=== PATIENT | female | born 1950 | race Caucasian/White ===

== ENCOUNTER 2021-02-12 04:14 | Inpatient (IN) ==
[2021-02-12] MEDS ORDERED: Chloraseptic Spray 177 ML BOTTLE MM PRN (10:19)
[2021-02-12] MEDS ORDERED: Naloxone 0.4 MG/ML INJ IVP PRN (10:21)
[2021-02-12] MEDS ORDERED: *HR* HYDROcodone/Acet 5/325 mg TABLET PO PRN (10:21)
[2021-02-12] MEDS ORDERED: Ondansetron 4 MG/2 ML VIAL IVP PRN (10:21)
[2021-02-12] MEDS ORDERED: Perflutren Lipid Microsphere 1.3 ML in 0.9 % Sodium Chloride 8.7 ML IVP PRN (10:24)
[2021-02-12] MEDS ORDERED: dexAMETHasone 4 MG TABLET PO SCH (10:45)
[2021-02-12 11:12] LABS: Hemoglobin 10.8 g/dL (11.5-15.4)
[2021-02-12 11:13] LABS: Hematocrit 32.9 % (35.3-44.9); Mean Corpuscular HGB Conc 32.8 g/dL (31.6-35.5); Mean Corpuscular Hemoglobin 31.2 pg (28.0-33.3); Mean Corpuscular Volume 95.1 fL (83.0-100.0); Mean Platelet Volume 10.2 fL (9.4-12.4); Platelet Count 195 K/mcL (140-400); Red Blood Count 3.46 M/mcL (3.82-4.97); Red Cell Distribution Width 19.2 % (11.5-14.5)
[2021-02-12 11:16] LABS: White Blood Count 38.3 K/mcL (4.3-11.1)
[2021-02-12 11:36] LABS: Albumin 3.3 g/dL (3.5-5.7); Albumin/Globulin Ratio 1.1 (1.1-2.2); Bilirubin,Total 0.6 mg/dL (0.3-1.0); Calcium 8.3 mg/dL (8.6-10.3); Chol/HDL Ratio 2.9 (0-4.9); Globulin 2.9 g/dL (2.4-3.5); Magnesium 1.9 mg/dL (1.6-2.6); Phosphorous 3.1 mg/dL (2.7-4.5); Potassium 3.6 mEq/L (3.5-5.1); Total Protein 6.2 g/dL (6.4-8.9)
[2021-02-12 11:48] LABS: Thyroid Stimulating Hormone 1.225 mcIU/mL (0.340-5.600)
[2021-02-12] MEDS ORDERED: *HR* Heparin 5,000 UNIT/ML VIAL IVP PRN ×4 (11:55→16:10)
[2021-02-12] MEDS ORDERED: Heparin 25,000UNIT/250ML 1/2NS 25,000 UNIT/250 ML IV.SOLN IVC SCH (12:00)
[2021-02-12] MEDS ORDERED: methylPREDNISolone 125 MG/2 ML VIAL IVP ONE (12:02)
[2021-02-12 12:06] LABS: Platelet Estimate Normal (Normal)
[2021-02-12] MEDS: Nicotine 21 MG PATCH.TD24 TD SCH (12:26)
[2021-02-12 14:04] LABS: Bilirubin,Urine Negative (Negative); Blood,Urine Small (Negative); Clarity,Urine Clear (Clear); Color,Urine Light-Yellow (Yellow); Glucose,Urine (UA) Normal (Normal); Ketones,Urine Trace mg/dL (Negative); Leukocyte Esterase,Urine Negative (Negative); Mucus,Urine Few per lpf (None-Few); Nitrite,Urine Negative (Negative); PH,Urine 5.5 pH Units (5.0-8.0); Protein,Urine 30 mg/dL (Neg-Trace); RBC,Urine 0-3 per hpf (0-3); Specific Gravity,Urine > 1.030 (1.010-1.025); Squamous Epithelial Cell,Urine Few per hpf (None-Few); Urobilinogen,Urine Normal (Normal); WBC,Urine 0-3 per hpf (0-3)
[2021-02-12] MEDS: Ipratropium/Albuterol Neb 3 ML IH SCH ×2 (14:13→15:56)
[2021-02-12 15:25] LABS: Heparin anti-factor XA UFH < 0.04 IU/mL (0.30-0.70); INR 1.3; Prothrombin Time 14.3 Seconds (9.4-12.1)
[2021-02-12 15:57] LABS: ABG Base Excess 0 mEq/L (-2 to 3); ABG HCO3 24 mEq/L (21-27); ABG Oxygen Saturation 93 % (95-98); ABG PCO2 34 mmHg (35-45); ABG PH 7.45 pH Units (7.32-7.45); ABG PO2 63 mmHg (85-104); ABG TCO2 25 mEq/L (20-26)
[2021-02-12] MEDS: Heparin 25,000UNIT/250ML 1/2NS 25,000 UNIT/250 ML IV.SOLN IVC SCH (16:41)
[2021-02-12] MEDS: MethylPREDNISolone 40 MG/ML VIAL IVP SCH ×2 (16:41→23:59)
[2021-02-12 16:49] LABS: Adenovirus Not Detected (Not Detect); Bordetella Pertussis Not Detected (Not Detect); Chlamydophila pneumoniae Not Detected (Not Detect); Coronavirus 229E Not Detected (Not Detect); Coronavirus HKU1 Not Detected (Not Detect); Coronavirus NL63 Not Detected (Not Detect); Coronavirus OC43 Not Detected (Not Detect); Human Metapneumovirus Not Detected (Not Detect); Human Rhinovirus/Enterovirus Not Detected (Not Detect); Influenza A Subtype 2009 H1 Not Detected (Not Detect); Influenza B Not Detected (Not Detect); Mycoplasma pneumoniae Not Detected (Not Detect); Parainfluenza Virus 1 Not Detected (Not Detect); Parainfluenza Virus 2 Not Detected (Not Detect); Parainfluenza Virus 3 Not Detected (Not Detect); Parainfluenza Virus 4 Not Detected (Not Detect); Respiratory Syncytial Virus Not Detected (Not Detect); SARS-CoV-2 Not Detected (Not Detect)
[2021-02-12] MEDS: Magic Mouthwash 10 ML UD Cup PO SCH (16:52)
[2021-02-12] MEDS: Calcium Gluconate 1gm/50mL 1 GM/50 ML BAG IVPB SCH ×2 (16:56→18:24)
[2021-02-12] MEDS: *HR* LORazepam 0.5 MG TABLET PO SCH ×2 (17:04→20:01)
[2021-02-12] MEDS: Piperacillin/Tazobactam 3.375 GM in 0.9 % Sodium Chloride Mini Bag 100 ML IVPB SCH ×2 (17:05→23:57)
[2021-02-12] MEDS: Folic Acid 1 MG TABLET PO SCH (17:13)
[2021-02-12] MEDS: FLUoxetine 20 MG CAPSULE PO SCH (17:13)
[2021-02-12] MEDS ORDERED: levoFLOXacin 750 MG/150 ML 750 MG/150 ML BAG IVPB SCH (18:00)
[2021-02-12] MEDS ORDERED: Furosemide 20 MG/2 ML VIAL IVP ONE (18:22)
[2021-02-12] MEDS: *HR* OxyCODONE/APAP 7.5/325 TABLET PO PRN (20:00)
[2021-02-12] MEDS: Acetaminophen 325 MG TABLET PO PRN (20:01)
[2021-02-12] MEDS: Lactobacillus 1 EACH CAP.SPRINK PO SCH (20:01)
[2021-02-12] MEDS: Chlorhexidine Rinse 15 ML MOUTHWASH MM SCH (20:01)
[2021-02-12] MEDS: Ipratropium Neb 0.5 MG NEBULIZER IH SCH (20:13)
[2021-02-12] MEDS: Budesonide/Formoterol 160/4.5 1 PUFF INH IH SCH (20:17)
[2021-02-13] MEDS: Ipratropium Neb 0.5 MG NEBULIZER IH SCH ×7 (00:22→23:36)
[2021-02-13] MEDS: Melatonin 3 MG TABLET PO PRN (02:11)
[2021-02-13] MEDS: MethylPREDNISolone 40 MG/ML VIAL IVP SCH ×4 (05:35→23:38)
[2021-02-13] MEDS: *HR* OxyCODONE/APAP 7.5/325 TABLET PO PRN ×3 (05:54→20:50)
[2021-02-13] MEDS: Budesonide/Formoterol 160/4.5 1 PUFF INH IH SCH ×3 (08:01→19:37)
[2021-02-13] MEDS ORDERED: Loratadine 10 MG TABLET PO SCH (09:00)
[2021-02-13] MEDS: Furosemide 20 MG/2 ML VIAL IVP SCH ×4 (09:00→20:57)
[2021-02-13] MEDS: Folic Acid 1 MG TABLET PO SCH (09:02)
[2021-02-13] MEDS: Multivit/Ca/Min/Fe/FA 1 TAB TABLET PO SCH (09:02)
[2021-02-13] MEDS: FLUoxetine 20 MG CAPSULE PO SCH (09:02)
[2021-02-13] MEDS: Aspirin 81 MG TAB.CHEW PO SCH (09:02)
[2021-02-13] MEDS: Lactobacillus 1 EACH CAP.SPRINK PO SCH ×2 (09:02→20:50)
[2021-02-13] MEDS: *HR* LORazepam 0.5 MG TABLET PO SCH ×3 (09:02→20:50)
[2021-02-13] MEDS: Nicotine 21 MG PATCH.TD24 TD SCH (09:02)
[2021-02-13] MEDS: Chlorhexidine Rinse 15 ML MOUTHWASH MM SCH ×2 (09:13→20:51)
[2021-02-13] MEDS: Magic Mouthwash 10 ML UD Cup PO SCH ×3 (09:13→16:36)
[2021-02-13] MEDS: Piperacillin/Tazobactam 3.375 GM in 0.9 % Sodium Chloride Mini Bag 100 ML IVPB SCH ×3 (12:10→23:40)
[2021-02-13] MEDS: Heparin 25,000UNIT/250ML 1/2NS 25,000 UNIT/250 ML IV.SOLN IVC SCH (16:27)
[2021-02-14 01:27] LABS: Hemoglobin 10.4 g/dL (11.5-15.4); Mean Corpuscular Volume 93.8 fL (83.0-100.0)
[2021-02-14 01:30] LABS: Hematocrit 31.9 % (35.3-44.9); Immature Platelets 4.7 % (1.1-6.1); Mean Corpuscular HGB Conc 32.6 g/dL (31.6-35.5); Mean Corpuscular Hemoglobin 30.6 pg (28.0-33.3); Mean Platelet Volume 11.1 fL (9.4-12.4); Red Cell Distribution Width 18.6 % (11.5-14.5); White Blood Count 16.2 K/mcL (4.3-11.1)
[2021-02-14 01:52] LABS: BUN/Creatinine Ratio 47 (6-26); Blood Urea Nitrogen 32 mg/dL (8-23); Carbon Dioxide 24 mEq/L (23-29); Chloride 103 mEq/L (98-107); Glucose 111 mg/dL (70-105); Magnesium 1.7 mg/dL (1.6-2.6); Osmolality,Calculated 296 (280-300); Phosphorous 2.8 mg/dL (2.7-4.5); Potassium 3.2 mEq/L (3.5-5.1); Sodium 139 mEq/L (136-145); eGFR For African Americans > 60 (> 60); eGFR For Non-African Americans > 60 (> 60)
[2021-02-14 02:05] LABS: Platelet Count 73 K/mcL (140-400)
[2021-02-14 02:19] LABS: Monocytes # 0.3 K/mcL (0.0-1.3); Neutrophils # 14.9 K/mcL (1.6-8.9); Platelet Estimate Slight Decrease (Normal)
[2021-02-14] MEDS: Ipratropium Neb 0.5 MG NEBULIZER IH SCH ×6 (03:42→23:37)
[2021-02-14] MEDS: MethylPREDNISolone 40 MG/ML VIAL IVP SCH ×3 (05:28→16:21)
[2021-02-14] MEDS: *HR* OxyCODONE/APAP 7.5/325 TABLET PO PRN ×3 (05:34→18:26)
[2021-02-14] MEDS: Budesonide/Formoterol 160/4.5 1 PUFF INH IH SCH ×2 (08:00→19:44)
[2021-02-14] MEDS: Furosemide 20 MG/2 ML VIAL IVP SCH ×2 (09:29→21:05)
[2021-02-14] MEDS: Piperacillin/Tazobactam 3.375 GM in 0.9 % Sodium Chloride Mini Bag 100 ML IVPB SCH ×2 (09:30→16:20)
[2021-02-14] MEDS: Chlorhexidine Rinse 15 ML MOUTHWASH MM SCH ×2 (09:30→21:07)
[2021-02-14] MEDS: FLUoxetine 20 MG CAPSULE PO SCH (09:30)
[2021-02-14] MEDS: Multivit/Ca/Min/Fe/FA 1 TAB TABLET PO SCH (09:30)
[2021-02-14] MEDS: Aspirin 81 MG TAB.CHEW PO SCH (09:31)
[2021-02-14] MEDS: *HR* LORazepam 0.5 MG TABLET PO SCH ×3 (09:31→21:07)
[2021-02-14] MEDS: Nicotine 21 MG PATCH.TD24 TD SCH ×2 (09:31→09:41)
[2021-02-14] MEDS: Lactobacillus 1 EACH CAP.SPRINK PO SCH ×2 (09:31→21:06)
[2021-02-14] MEDS: Folic Acid 1 MG TABLET PO SCH (09:31)
[2021-02-14] MEDS: Magic Mouthwash 10 ML UD Cup PO SCH ×3 (09:35→16:20)
[2021-02-14] MEDS ORDERED: levoFLOXacin 750 MG/150 ML 750 MG/150 ML BAG IVPB SCH (12:00)
[2021-02-14] MEDS: *HR* Heparin 5,000 UNIT/ML VIAL SQ SCH (21:06)
[2021-02-15] MEDS: MethylPREDNISolone 40 MG/ML VIAL IVP SCH ×5 (00:12→23:45)
[2021-02-15] MEDS: Piperacillin/Tazobactam 3.375 GM in 0.9 % Sodium Chloride Mini Bag 100 ML IVPB SCH ×4 (00:12→23:47)
[2021-02-15 00:23] LABS: VBG HCO3 33 mEq/L (21-27); VBG PCO2 46 mmHg (41-51); VBG PH 7.46 pH Units (7.32-7.42); VBG PO2 28 mmHg (25-50)
[2021-02-15] MEDS: Ipratropium Neb 0.5 MG NEBULIZER IH SCH ×6 (04:16→22:55)
[2021-02-15] MEDS: Magic Mouthwash 10 ML UD Cup PO SCH ×3 (05:40→15:04)
[2021-02-15] MEDS: *HR* Heparin 5,000 UNIT/ML VIAL SQ SCH (05:40)
[2021-02-15] MEDS: Budesonide/Formoterol 160/4.5 1 PUFF INH IH SCH ×2 (07:53→19:39)
[2021-02-15] MEDS: Folic Acid 1 MG TABLET PO SCH (08:00)
[2021-02-15] MEDS: Lactobacillus 1 EACH CAP.SPRINK PO SCH ×2 (08:00→20:32)
[2021-02-15] MEDS: *HR* OxyCODONE/APAP 7.5/325 TABLET PO PRN ×3 (08:00→23:46)
[2021-02-15] MEDS: Multivit/Ca/Min/Fe/FA 1 TAB TABLET PO SCH (08:00)
[2021-02-15] MEDS: FLUoxetine 20 MG CAPSULE PO SCH (08:00)
[2021-02-15] MEDS: Aspirin 81 MG TAB.CHEW PO SCH (08:00)
[2021-02-15] MEDS: *HR* LORazepam 0.5 MG TABLET PO SCH ×3 (08:00→20:32)
[2021-02-15] MEDS: Chlorhexidine Rinse 15 ML MOUTHWASH MM SCH ×2 (08:01→20:32)
[2021-02-15] MEDS: Nicotine 21 MG PATCH.TD24 TD SCH (08:03)
[2021-02-15] MEDS: Furosemide 20 MG/2 ML VIAL IVP SCH ×2 (08:05→21:41)
[2021-02-15 09:36] LABS: Hematocrit 35.3 % (35.3-44.9); Hemoglobin 11.6 g/dL (11.5-15.4); Immature Platelets 7.4 % (1.1-6.1); Mean Corpuscular HGB Conc 32.9 g/dL (31.6-35.5); Mean Corpuscular Hemoglobin 30.1 pg (28.0-33.3); Mean Corpuscular Volume 91.7 fL (83.0-100.0); Red Blood Count 3.85 M/mcL (3.82-4.97); Red Cell Distribution Width 18.1 % (11.5-14.5)
[2021-02-15 10:01] LABS: BUN/Creatinine Ratio 39 (6-26); Blood Urea Nitrogen 32 mg/dL (8-23); Calcium 8.5 mg/dL (8.6-10.3); Carbon Dioxide 28 mEq/L (23-29); Chloride 97 mEq/L (98-107); Glucose 150 mg/dL (70-105); Osmolality,Calculated 296 (280-300); Potassium 3.1 mEq/L (3.5-5.1); Sodium 138 mEq/L (136-145); eGFR For African Americans > 60 (> 60); eGFR For Non-African Americans > 60 (> 60)
[2021-02-15 10:28] LABS: Platelet Count 47 K/mcL (140-400)
[2021-02-15 10:32] LABS: Lymphocytes # 0.4 K/mcL (0.6-4.6); Monocytes # 0.2 K/mcL (0.0-1.3); Neutrophils # 8.5 K/mcL (1.6-8.9)
[2021-02-15 10:33] LABS: Platelet Estimate Decreased (Normal)
[2021-02-15] MEDS: Azithromycin 250 MG TABLET PO SCH (13:13)
[2021-02-15] MEDS: Melatonin 3 MG TABLET PO PRN (23:47)
[2021-02-16] MEDS: Ipratropium Neb 0.5 MG NEBULIZER IH SCH ×5 (03:52→19:49)
[2021-02-16 04:07] LABS: BUN/Creatinine Ratio 46 (6-26); Blood Urea Nitrogen 32 mg/dL (8-23); Carbon Dioxide 31 mEq/L (23-29); Chloride 95 mEq/L (98-107); Glucose 134 mg/dL (70-105); Magnesium 1.7 mg/dL (1.6-2.6); Osmolality,Calculated 293 (280-300); Phosphorous 3.6 mg/dL (2.7-4.5); Potassium 3.3 mEq/L (3.5-5.1); Sodium 137 mEq/L (136-145); eGFR For African Americans > 60 (> 60); eGFR For Non-African Americans > 60 (> 60)
[2021-02-16] MEDS: MethylPREDNISolone 40 MG/ML VIAL IVP SCH ×3 (05:51→17:48)
[2021-02-16] MEDS: Magic Mouthwash 10 ML UD Cup PO SCH ×3 (05:51→15:16)
[2021-02-16] MEDS: *HR* OxyCODONE/APAP 7.5/325 TABLET PO PRN ×3 (05:55→19:21)
[2021-02-16] MEDS ORDERED: Lidocaine Viscous Oral Soln 15 ML SOLUTION ONE (08:26)
[2021-02-16] MEDS ORDERED: *HR* FentaNYL (PF) 100 MCG/2 ML VIAL ONE (08:26)
[2021-02-16] MEDS ORDERED: *HR* Midazolam HCl 5 MG/5 ML VIAL IVP ONE ×2 (08:27→08:32)
[2021-02-16] MEDS ORDERED: *HR* FentaNYL (PF) 100 MCG/2 ML VIAL IVP ONE (08:32)
[2021-02-16] MEDS ORDERED: Tetracaine/Benzocaine/Butamben 1 SPRAY AEROSOL MM ONE (08:32)
[2021-02-16] MEDS: Albuterol 2.5 MG/3 ML NEBULIZER IH PRN (08:32)
[2021-02-16] MEDS ORDERED: Lidocaine Viscous Oral Soln 15 ML SOLUTION MM ONE (08:32)
[2021-02-16] MEDS: 0.9 % Sodium Chloride 1,000 ML IVC SCH (08:40)
[2021-02-16] MEDS: Budesonide/Formoterol 160/4.5 1 PUFF INH IH SCH ×2 (08:58→19:49)
[2021-02-16] MEDS: Lactobacillus 1 EACH CAP.SPRINK PO SCH ×2 (12:55→20:45)
[2021-02-16] MEDS: Furosemide 20 MG/2 ML VIAL IVP SCH ×3 (12:55→20:47)
[2021-02-16] MEDS: Folic Acid 1 MG TABLET PO SCH (12:55)
[2021-02-16] MEDS: Chlorhexidine Rinse 15 ML MOUTHWASH MM SCH ×2 (12:55→20:45)
[2021-02-16] MEDS: Aspirin 81 MG TAB.CHEW PO SCH (12:55)
[2021-02-16] MEDS: Multivit/Ca/Min/Fe/FA 1 TAB TABLET PO SCH (12:56)
[2021-02-16] MEDS: Nicotine 21 MG PATCH.TD24 TD SCH (12:56)
[2021-02-16] MEDS: Azithromycin 250 MG TABLET PO SCH (12:56)
[2021-02-16] MEDS: *HR* LORazepam 0.5 MG TABLET PO SCH ×3 (12:56→20:45)
[2021-02-16] MEDS: FLUoxetine 20 MG CAPSULE PO SCH (12:56)
[2021-02-16 13:55] LABS: Hemoglobin 11.3 g/dL (11.5-15.4); Mean Corpuscular Hemoglobin 30.1 pg (28.0-33.3); Red Blood Count 3.76 M/mcL (3.82-4.97)
[2021-02-16 13:57] LABS: Hematocrit 35.2 % (35.3-44.9); Immature Platelets 10.8 % (1.1-6.1); Mean Corpuscular HGB Conc 32.1 g/dL (31.6-35.5); Mean Corpuscular Volume 93.6 fL (83.0-100.0); Mean Platelet Volume 12.7 fL (9.4-12.4); White Blood Count 9.8 K/mcL (4.3-11.1)
[2021-02-16 14:01] LABS: Platelet Count 44 K/mcL (140-400)
[2021-02-16 14:32] LABS: Lymphocytes # 0.4 K/mcL (0.6-4.6); Neutrophils # 8.4 K/mcL (1.6-8.9)
[2021-02-16 14:33] LABS: Anisocytosis 1+ (Not Present); Platelet Estimate Marked Decrease (Normal); Toxic Granulation Present (Not Present)
[2021-02-16] MEDS: Piperacillin/Tazobactam 3.375 GM in 0.9 % Sodium Chloride Mini Bag 100 ML IVPB SCH (15:17)
[2021-02-16] MEDS: Acetaminophen 325 MG TABLET PO PRN (17:48)
[2021-02-16 18:41] LABS: Appearance of Body Fluid Cloudy (Clear); Volume of Body Fluid 8 mL
[2021-02-16] MEDS: Melatonin 3 MG TABLET PO PRN (20:45)
[2021-02-16] MEDS ORDERED: *HR* HYDROmorphone 2 MG TABLET PO ONE (22:07)
[2021-02-17] MEDS: Piperacillin/Tazobactam 3.375 GM in 0.9 % Sodium Chloride Mini Bag 100 ML IVPB SCH ×3 (00:45→05:19)
[2021-02-17] MEDS: MethylPREDNISolone 40 MG/ML VIAL IVP SCH ×3 (00:55→14:04)
[2021-02-17 01:50] LABS: Hematocrit 33.6 % (35.3-44.9); Immature Platelets 9.9 % (1.1-6.1); Mean Corpuscular HGB Conc 32.7 g/dL (31.6-35.5); Mean Corpuscular Hemoglobin 30.3 pg (28.0-33.3); Mean Corpuscular Volume 92.6 fL (83.0-100.0); Mean Platelet Volume 12.5 fL (9.4-12.4); Red Blood Count 3.63 M/mcL (3.82-4.97); Red Cell Distribution Width 17.9 % (11.5-14.5); White Blood Count 10.3 K/mcL (4.3-11.1)
[2021-02-17 01:54] LABS: Platelet Count 36 K/mcL (140-400)
[2021-02-17 02:08] LABS: BUN/Creatinine Ratio 43 (6-26); Blood Urea Nitrogen 29 mg/dL (8-23); Calcium 8.6 mg/dL (8.6-10.3); Carbon Dioxide 31 mEq/L (23-29); Chloride 100 mEq/L (98-107); Glucose 116 mg/dL (70-105); Magnesium 1.5 mg/dL (1.6-2.6); Osmolality,Calculated 289 (280-300); Potassium 4.2 mEq/L (3.5-5.1); Sodium 136 mEq/L (136-145); eGFR For African Americans > 60 (> 60); eGFR For Non-African Americans > 60 (> 60)
[2021-02-17 03:04] LABS: Eosinophils # 0.2 K/mcL (0.0-0.6); Lymphocytes # 1.9 K/mcL (0.6-4.6)
[2021-02-17 03:05] LABS: Platelet Estimate Marked Decrease (Normal); Reactive Lymphocytes Present (Not Present); Toxic Granulation Present (Not Present)
[2021-02-17] MEDS: Ipratropium Neb 0.5 MG NEBULIZER IH SCH ×7 (04:07→23:44)
[2021-02-17] MEDS: *HR* OxyCODONE/APAP 7.5/325 TABLET PO PRN ×3 (05:19→21:57)
[2021-02-17] MEDS: Budesonide/Formoterol 160/4.5 1 PUFF INH IH SCH ×2 (07:26→19:45)
[2021-02-17] MEDS: Chlorhexidine Rinse 15 ML MOUTHWASH MM SCH ×2 (08:52→21:56)
[2021-02-17] MEDS: Magic Mouthwash 10 ML UD Cup PO SCH ×3 (08:52→21:40)
[2021-02-17] MEDS: Furosemide 20 MG/2 ML VIAL IVP SCH ×2 (08:53→21:59)
[2021-02-17] MEDS: FLUoxetine 20 MG CAPSULE PO SCH (08:53)
[2021-02-17] MEDS: Lactobacillus 1 EACH CAP.SPRINK PO SCH ×2 (08:53→21:57)
[2021-02-17] MEDS: *HR* LORazepam 0.5 MG TABLET PO SCH ×3 (08:53→21:57)
[2021-02-17] MEDS: Folic Acid 1 MG TABLET PO SCH (08:53)
[2021-02-17] MEDS: 0.9 % Sodium Chloride 1,000 ML IVC SCH ×2 (08:53→22:21)
[2021-02-17] MEDS: Aspirin 81 MG TAB.CHEW PO SCH (08:54)
[2021-02-17] MEDS: Multivit/Ca/Min/Fe/FA 1 TAB TABLET PO SCH (08:54)
[2021-02-17] MEDS: Nicotine 21 MG PATCH.TD24 TD SCH (08:55)
[2021-02-17] MEDS: Azithromycin 250 MG TABLET PO SCH (08:55)
[2021-02-17] MEDS ORDERED: Acetaminophen 325 MG TABLET PO PRN (13:10)
[2021-02-17] MEDS ORDERED: Cefepime HCl 2,000 MG in 0.9 % Sodium Chloride Mini Bag 100 ML IVPB SCH (14:00)
[2021-02-17] MEDS: Cefepime HCl 2,000 MG in Water for inj. (sterile) 20 ML IVP SCH ×2 (14:04→21:59)
[2021-02-17] MEDS: MetroNIDAZOLE 500 MG/100 ML 500 MG/100 ML BAG IVPB SCH ×2 (14:05→21:59)
[2021-02-17] MEDS ORDERED: dexAMETHasone 4 MG TABLET PO SCH (15:00)
[2021-02-17] MEDS: dexAMETHasone 4 MG TABLET PO SCH (21:57)
[2021-02-18 03:23] LABS: Hematocrit 33.8 % (35.3-44.9); Hemoglobin 10.8 g/dL (11.5-15.4); Immature Platelets 7.7 % (1.1-6.1); Mean Corpuscular Hemoglobin 30.2 pg (28.0-33.3); Mean Corpuscular Volume 94.4 fL (83.0-100.0); Mean Platelet Volume 12.5 fL (9.4-12.4); Red Blood Count 3.58 M/mcL (3.82-4.97); Red Cell Distribution Width 17.5 % (11.5-14.5); White Blood Count 9.5 K/mcL (4.3-11.1)
[2021-02-18 03:34] LABS: Platelet Count 30 K/mcL (140-400)
[2021-02-18 03:41] LABS: BUN/Creatinine Ratio 43 (6-26); Blood Urea Nitrogen 22 mg/dL (8-23); Calcium 8.3 mg/dL (8.6-10.3); Carbon Dioxide 28 mEq/L (23-29); Chloride 100 mEq/L (98-107); Glucose 108 mg/dL (70-105); Magnesium 1.5 mg/dL (1.6-2.6); Osmolality,Calculated 282 (280-300); Potassium 4.2 mEq/L (3.5-5.1); Sodium 134 mEq/L (136-145); eGFR For African Americans > 60 (> 60); eGFR For Non-African Americans > 60 (> 60)
[2021-02-18 04:01] LABS: Lymphocytes # 0.2 K/mcL (0.6-4.6); Monocytes # 0.4 K/mcL (0.0-1.3); Neutrophils # 8.9 K/mcL (1.6-8.9)
[2021-02-18 04:02] LABS: Anisocytosis 1+ (Not Present); Platelet Estimate Marked Decrease (Normal); Toxic Granulation Present (Not Present)
[2021-02-18] MEDS: Ipratropium Neb 0.5 MG NEBULIZER IH SCH ×6 (04:06→23:59)
[2021-02-18] MEDS: Cefepime HCl 2,000 MG in Water for inj. (sterile) 20 ML IVP SCH ×2 (06:20→14:21)
[2021-02-18] MEDS: MetroNIDAZOLE 500 MG/100 ML 500 MG/100 ML BAG IVPB SCH ×2 (06:21→14:21)
[2021-02-18] MEDS: Albuterol 2.5 MG/3 ML NEBULIZER IH PRN (07:16)
[2021-02-18] MEDS: Budesonide/Formoterol 160/4.5 1 PUFF INH IH SCH ×2 (07:16→20:07)
[2021-02-18] MEDS: Magic Mouthwash 10 ML UD Cup PO SCH ×3 (08:04→16:12)
[2021-02-18] MEDS ORDERED: dexAMETHasone 4 MG TABLET PO SCH (09:00)
[2021-02-18] MEDS: Nicotine 21 MG PATCH.TD24 TD SCH (09:48)
[2021-02-18] MEDS: Folic Acid 1 MG TABLET PO SCH (09:49)
[2021-02-18] MEDS: FLUoxetine 20 MG CAPSULE PO SCH (09:49)
[2021-02-18] MEDS: *HR* LORazepam 0.5 MG TABLET PO SCH ×3 (09:49→22:13)
[2021-02-18] MEDS: dexAMETHasone 4 MG TABLET PO SCH ×2 (09:49→22:13)
[2021-02-18] MEDS: Furosemide 20 MG/2 ML VIAL IVP SCH ×2 (09:50→22:13)
[2021-02-18] MEDS: Lactobacillus 1 EACH CAP.SPRINK PO SCH ×2 (09:50→22:13)
[2021-02-18] MEDS: Multivit/Ca/Min/Fe/FA 1 TAB TABLET PO SCH (09:51)
[2021-02-18] MEDS: Chlorhexidine Rinse 15 ML MOUTHWASH MM SCH ×2 (09:51→22:12)
[2021-02-18] MEDS: Aspirin 81 MG TAB.CHEW PO SCH (10:01)
[2021-02-18] MEDS: *HR* OxyCODONE/APAP 7.5/325 TABLET PO PRN ×2 (10:50→18:56)
[2021-02-18 13:48] LABS: Phosphorous 2.4 mg/dL (2.7-4.5)
[2021-02-18] MEDS: Morphine Sulfate 2 MG/ML SYRINGE IVP PRN ×2 (14:47→22:14)
[2021-02-18] MEDS: 0.9 % Sodium Chloride 1,000 ML IVC SCH (21:59)
[2021-02-18] MEDS: Melatonin 3 MG TABLET PO PRN (22:12)
[2021-02-18] MEDS: cefTRIAXone 1,000 MG in 0.9 % Sodium Chloride Mini Bag 100 ML IVPB SCH (22:13)
[2021-02-19 01:30] LABS: Red Cell Distribution Width 17.8 % (11.5-14.5)
[2021-02-19 01:32] LABS: Hematocrit 34.8 % (35.3-44.9); Hemoglobin 11.3 g/dL (11.5-15.4); Immature Platelets 9.3 % (1.1-6.1); Mean Corpuscular HGB Conc 32.5 g/dL (31.6-35.5); Mean Corpuscular Hemoglobin 30.2 pg (28.0-33.3); Mean Platelet Volume 12.4 fL (9.4-12.4); Red Blood Count 3.74 M/mcL (3.82-4.97); White Blood Count 12.8 K/mcL (4.3-11.1)
[2021-02-19 01:43] LABS: BUN/Creatinine Ratio 25 (6-26); Blood Urea Nitrogen 18 mg/dL (8-23); Carbon Dioxide 28 mEq/L (23-29); Chloride 98 mEq/L (98-107); Glucose 118 mg/dL (70-105); Magnesium 1.6 mg/dL (1.6-2.6); Osmolality,Calculated 289 (280-300); Phosphorous 5.9 mg/dL (2.7-4.5); Potassium 3.5 mEq/L (3.5-5.1); Sodium 138 mEq/L (136-145); eGFR For African Americans > 60 (> 60); eGFR For Non-African Americans > 60 (> 60)
[2021-02-19 01:44] LABS: Platelet Count 26 K/mcL (140-400)
[2021-02-19] MEDS: Ipratropium Neb 0.5 MG NEBULIZER IH SCH ×6 (04:50→23:41)
[2021-02-19] MEDS: Morphine Sulfate 2 MG/ML SYRINGE IVP PRN ×3 (05:54→21:15)
[2021-02-19] MEDS: Budesonide/Formoterol 160/4.5 1 PUFF INH IH SCH ×2 (07:38→20:02)
[2021-02-19 07:53] LABS: Lymphocytes # 2.6 K/mcL (0.6-4.6); Monocytes # 1.5 K/mcL (0.0-1.3); Neutrophils # 8.7 K/mcL (1.6-8.9); Platelet Estimate Marked Decrease (Normal)
[2021-02-19] MEDS: Multivit/Ca/Min/Fe/FA 1 TAB TABLET PO SCH (08:31)
[2021-02-19] MEDS: Nicotine 21 MG PATCH.TD24 TD SCH (08:31)
[2021-02-19] MEDS: dexAMETHasone 4 MG TABLET PO SCH ×2 (08:31→19:26)
[2021-02-19] MEDS: Magic Mouthwash 10 ML UD Cup PO SCH ×3 (08:31→17:35)
[2021-02-19] MEDS: Furosemide 20 MG/2 ML VIAL IVP SCH ×2 (08:31→19:27)
[2021-02-19] MEDS: *HR* OxyCODONE/APAP 7.5/325 TABLET PO PRN ×2 (08:31→19:26)
[2021-02-19] MEDS: Folic Acid 1 MG TABLET PO SCH (08:31)
[2021-02-19] MEDS: FLUoxetine 20 MG CAPSULE PO SCH (08:31)
[2021-02-19] MEDS: *HR* LORazepam 0.5 MG TABLET PO SCH ×3 (08:31→19:27)
[2021-02-19] MEDS: Chlorhexidine Rinse 15 ML MOUTHWASH MM SCH ×2 (08:31→19:26)
[2021-02-19] MEDS: Lactobacillus 1 EACH CAP.SPRINK PO SCH ×2 (08:31→19:26)
[2021-02-19] MEDS: Aspirin 81 MG TAB.CHEW PO SCH (08:32)
[2021-02-19] MEDS: 0.9 % Sodium Chloride 1,000 ML IVC SCH (17:37)
[2021-02-19] MEDS: Melatonin 3 MG TABLET PO PRN (19:26)
[2021-02-19] MEDS: cefTRIAXone 1,000 MG in 0.9 % Sodium Chloride Mini Bag 100 ML IVPB SCH (21:15)
[2021-02-20 04:09] LABS: BUN/Creatinine Ratio 33 (6-26); Blood Urea Nitrogen 21 mg/dL (8-23); Calcium 8.4 mg/dL (8.6-10.3); Carbon Dioxide 31 mEq/L (23-29); Chloride 97 mEq/L (98-107); Glucose 129 mg/dL (70-105); Magnesium 1.6 mg/dL (1.6-2.6); Osmolality,Calculated 287 (280-300); Potassium 3.6 mEq/L (3.5-5.1); Sodium 136 mEq/L (136-145); eGFR For African Americans > 60 (> 60); eGFR For Non-African Americans > 60 (> 60)
[2021-02-20 04:10] LABS: Hematocrit 33.5 % (35.3-44.9); Hemoglobin 10.9 g/dL (11.5-15.4); Immature Platelets 9.9 % (1.1-6.1); Mean Corpuscular HGB Conc 32.5 g/dL (31.6-35.5); Mean Corpuscular Hemoglobin 30.4 pg (28.0-33.3); Mean Corpuscular Volume 93.3 fL (83.0-100.0); Mean Platelet Volume 12.9 fL (9.4-12.4); Red Blood Count 3.59 M/mcL (3.82-4.97); Red Cell Distribution Width 18.1 % (11.5-14.5); White Blood Count 12.6 K/mcL (4.3-11.1)
[2021-02-20 04:23] LABS: Platelet Count 26 K/mcL (140-400)
[2021-02-20] MEDS: Ipratropium Neb 0.5 MG NEBULIZER IH SCH ×6 (04:39→23:11)
[2021-02-20] MEDS: Morphine Sulfate 2 MG/ML SYRINGE IVP PRN ×3 (04:44→22:18)
[2021-02-20 05:20] LABS: Basophils # 0.3 K/mcL (0.0-0.2); Lymphocytes # 1.3 K/mcL (0.6-4.6); Monocytes # 0.5 K/mcL (0.0-1.3); Neutrophils # 10.6 K/mcL (1.6-8.9)
[2021-02-20 05:21] LABS: Platelet Estimate Marked Decrease (Normal)
[2021-02-20] MEDS: Budesonide/Formoterol 160/4.5 1 PUFF INH IH SCH ×2 (07:48→20:01)
[2021-02-20] MEDS: Magic Mouthwash 10 ML UD Cup PO SCH ×3 (08:50→16:14)
[2021-02-20] MEDS: Furosemide 20 MG/2 ML VIAL IVP SCH ×2 (08:50→19:49)
[2021-02-20] MEDS: Chlorhexidine Rinse 15 ML MOUTHWASH MM SCH ×2 (08:50→19:49)
[2021-02-20] MEDS: Aspirin 81 MG TAB.CHEW PO SCH (08:51)
[2021-02-20] MEDS: *HR* LORazepam 0.5 MG TABLET PO SCH ×3 (08:51→19:49)
[2021-02-20] MEDS: Nicotine 21 MG PATCH.TD24 TD SCH (08:51)
[2021-02-20] MEDS: Multivit/Ca/Min/Fe/FA 1 TAB TABLET PO SCH (08:51)
[2021-02-20] MEDS: Folic Acid 1 MG TABLET PO SCH (08:51)
[2021-02-20] MEDS: dexAMETHasone 4 MG TABLET PO SCH ×2 (08:51→19:48)
[2021-02-20] MEDS: Lactobacillus 1 EACH CAP.SPRINK PO SCH ×2 (08:51→19:49)
[2021-02-20] MEDS: FLUoxetine 20 MG CAPSULE PO SCH (08:51)
[2021-02-20 10:46] LABS: Adenovirus Not Detected (Not Detect); Bordetella Pertussis Not Detected (Not Detect); Coronavirus 229E Not Detected (Not Detect); Coronavirus HKU1 Not Detected (Not Detect); Coronavirus NL63 Not Detected (Not Detect); Coronavirus OC43 Not Detected (Not Detect); Human Metapneumovirus Not Detected (Not Detect); Human Rhinovirus/Enterovirus Not Detected (Not Detect); Influenza A Subtype 2009 H1 Not Detected (Not Detect); Influenza B Not Detected (Not Detect); Parainfluenza Virus 1 Not Detected (Not Detect); Parainfluenza Virus 2 Not Detected (Not Detect); Parainfluenza Virus 3 Not Detected (Not Detect); Parainfluenza Virus 4 Not Detected (Not Detect); Respiratory Syncytial Virus Not Detected (Not Detect); SARS-CoV-2 Not Detected (Not Detect)
[2021-02-20 10:47] LABS: Chlamydophila pneumoniae Not Detected (Not Detect); Mycoplasma pneumoniae Not Detected (Not Detect)
[2021-02-20] MEDS: *HR* OxyCODONE/APAP 7.5/325 TABLET PO PRN (19:49)
[2021-02-20] MEDS: Melatonin 3 MG TABLET PO PRN (19:49)
[2021-02-20] MEDS: cefTRIAXone 1,000 MG in 0.9 % Sodium Chloride Mini Bag 100 ML IVPB SCH (22:18)
[2021-02-21 03:00] LABS: Basophils % 0.2 %; Hematocrit 34.2 % (35.3-44.9); Hemoglobin 11.1 g/dL (11.5-15.4); Lymphocytes % 6.9 %; Mean Corpuscular HGB Conc 32.5 g/dL (31.6-35.5); Mean Corpuscular Hemoglobin 30.6 pg (28.0-33.3); Mean Corpuscular Volume 94.2 fL (83.0-100.0); Mean Platelet Volume 12.5 fL (9.4-12.4); Monocytes # 0.7 K/mcL (0.0-1.3); Monocytes % 4.8 %; Neutrophils # 12.5 K/mcL (1.6-8.9); Red Blood Count 3.63 M/mcL (3.82-4.97); Red Cell Distribution Width 18.1 % (11.5-14.5); Segmented Neutrophils % 87.1 %; White Blood Count 14.4 K/mcL (4.3-11.1)
[2021-02-21 03:14] LABS: Platelet Count 28 K/mcL (140-400)
[2021-02-21 03:19] LABS: BUN/Creatinine Ratio 36 (6-26); Blood Urea Nitrogen 22 mg/dL (8-23); Calcium 8.5 mg/dL (8.6-10.3); Carbon Dioxide 30 mEq/L (23-29); Chloride 96 mEq/L (98-107); Glucose 141 mg/dL (70-105); Magnesium 1.5 mg/dL (1.6-2.6); Osmolality,Calculated 284 (280-300); Phosphorous 2.8 mg/dL (2.7-4.5); Potassium 4.3 mEq/L (3.5-5.1); Sodium 134 mEq/L (136-145); eGFR For African Americans > 60 (> 60); eGFR For Non-African Americans > 60 (> 60)
[2021-02-21 03:28] LABS: Platelet Estimate Marked Decrease (Normal); Reactive Lymphocytes Present (Not Present)
[2021-02-21] MEDS: Ipratropium Neb 0.5 MG NEBULIZER IH SCH ×6 (04:47→23:07)
[2021-02-21] MEDS: Morphine Sulfate 2 MG/ML SYRINGE IVP PRN (05:39)
[2021-02-21] MEDS: Budesonide/Formoterol 160/4.5 1 PUFF INH IH SCH ×2 (07:46→20:46)
[2021-02-21] MEDS: Magic Mouthwash 10 ML UD Cup PO SCH ×3 (08:56→16:10)
[2021-02-21] MEDS: Chlorhexidine Rinse 15 ML MOUTHWASH MM SCH ×2 (08:56→21:09)
[2021-02-21] MEDS: Lactobacillus 1 EACH CAP.SPRINK PO SCH ×2 (08:57→21:09)
[2021-02-21] MEDS: Folic Acid 1 MG TABLET PO SCH (08:57)
[2021-02-21] MEDS: dexAMETHasone 4 MG TABLET PO SCH ×2 (08:57→21:09)
[2021-02-21] MEDS: Furosemide 20 MG/2 ML VIAL IVP SCH ×2 (08:57→21:26)
[2021-02-21] MEDS: Nicotine 21 MG PATCH.TD24 TD SCH (08:57)
[2021-02-21] MEDS: Multivit/Ca/Min/Fe/FA 1 TAB TABLET PO SCH (08:57)
[2021-02-21] MEDS: FLUoxetine 20 MG CAPSULE PO SCH (08:57)
[2021-02-21] MEDS: Aspirin 81 MG TAB.CHEW PO SCH (08:57)
[2021-02-21] MEDS: *HR* LORazepam 0.5 MG TABLET PO SCH ×3 (08:57→21:09)
[2021-02-21] MEDS: cefTRIAXone 1,000 MG in 0.9 % Sodium Chloride Mini Bag 100 ML IVPB SCH (21:09)
[2021-02-21] MEDS: *HR* OxyCODONE/APAP 7.5/325 TABLET PO PRN (21:25)
[2021-02-22 01:37] LABS: Basophils % 0.2 %; Hematocrit 35.6 % (35.3-44.9); Hemoglobin 11.6 g/dL (11.5-15.4); Immature Platelets 7.1 % (1.1-6.1); Lymphocytes # 0.9 K/mcL (0.6-4.6); Lymphocytes % 4.3 %; Mean Corpuscular HGB Conc 32.6 g/dL (31.6-35.5); Mean Corpuscular Hemoglobin 30.9 pg (28.0-33.3); Mean Corpuscular Volume 94.7 fL (83.0-100.0); Mean Platelet Volume 10.3 fL (9.4-12.4); Monocytes # 0.9 K/mcL (0.0-1.3); Monocytes % 4.4 %; Neutrophils # 18.2 K/mcL (1.6-8.9); Red Blood Count 3.76 M/mcL (3.82-4.97); Red Cell Distribution Width 18.5 % (11.5-14.5); Segmented Neutrophils % 90.1 %; White Blood Count 20.2 K/mcL (4.3-11.1)
[2021-02-22 01:40] LABS: Platelet Count 45 K/mcL (140-400)
[2021-02-22 01:52] LABS: BUN/Creatinine Ratio 32 (6-26); Blood Urea Nitrogen 23 mg/dL (8-23); Calcium 8.8 mg/dL (8.6-10.3); Carbon Dioxide 30 mEq/L (23-29); Chloride 95 mEq/L (98-107); Glucose 120 mg/dL (70-105); Magnesium 1.9 mg/dL (1.6-2.6); Osmolality,Calculated 283 (280-300); Potassium 4.1 mEq/L (3.5-5.1); Sodium 134 mEq/L (136-145); eGFR For African Americans > 60 (> 60); eGFR For Non-African Americans > 60 (> 60)
[2021-02-22] MEDS: Ipratropium Neb 0.5 MG NEBULIZER IH SCH ×6 (03:25→23:53)
[2021-02-22] MEDS: Budesonide/Formoterol 160/4.5 1 PUFF INH IH SCH ×2 (07:17→19:51)
[2021-02-22] MEDS: FLUoxetine 20 MG CAPSULE PO SCH (08:41)
[2021-02-22] MEDS: Aspirin 81 MG TAB.CHEW PO SCH (08:41)
[2021-02-22] MEDS: *HR* OxyCODONE/APAP 7.5/325 TABLET PO PRN ×4 (08:41→22:19)
[2021-02-22] MEDS: Folic Acid 1 MG TABLET PO SCH (08:42)
[2021-02-22] MEDS: *HR* LORazepam 0.5 MG TABLET PO SCH ×3 (08:42→20:58)
[2021-02-22] MEDS: dexAMETHasone 4 MG TABLET PO SCH ×2 (08:42→20:58)
[2021-02-22] MEDS: Nicotine 21 MG PATCH.TD24 TD SCH (08:42)
[2021-02-22] MEDS: Lactobacillus 1 EACH CAP.SPRINK PO SCH ×2 (08:42→20:58)
[2021-02-22] MEDS: Multivit/Ca/Min/Fe/FA 1 TAB TABLET PO SCH (08:42)
[2021-02-22] MEDS: Chlorhexidine Rinse 15 ML MOUTHWASH MM SCH ×2 (08:43→21:00)
[2021-02-22] MEDS: Furosemide 20 MG/2 ML VIAL IVP SCH ×2 (08:43→22:33)
[2021-02-22] MEDS: Magic Mouthwash 10 ML UD Cup PO SCH ×2 (08:43→10:42)
[2021-02-22] MEDS: Sennosides/Docusate Sodium TABLET PO SCH ×2 (10:41→20:59)
[2021-02-22] MEDS: polyethylene glycoL 3350 17 GM POWD.PACK PO SCH (10:41)
[2021-02-22] MEDS: Melatonin 3 MG TABLET PO PRN (23:53)
[2021-02-23] MEDS: cefTRIAXone 1,000 MG in 0.9 % Sodium Chloride Mini Bag 100 ML IVPB SCH ×2 (00:29→21:05)
[2021-02-23 02:18] LABS: Hemoglobin 11.1 g/dL (11.5-15.4); Mean Corpuscular Volume 93.1 fL (83.0-100.0); Monocytes % 4.3 %
[2021-02-23 02:20] LABS: Basophils % 0.2 %; Hematocrit 33.8 % (35.3-44.9); Immature Granulocytes % 1.5 % (0-4); Lymphocytes # 0.7 K/mcL (0.6-4.6); Lymphocytes % 3.4 %; Mean Corpuscular HGB Conc 32.8 g/dL (31.6-35.5); Mean Corpuscular Hemoglobin 30.6 pg (28.0-33.3); Mean Platelet Volume 11.4 fL (9.4-12.4); Monocytes # 0.9 K/mcL (0.0-1.3); Neutrophils # 19.6 K/mcL (1.6-8.9); Red Blood Count 3.63 M/mcL (3.82-4.97); Red Cell Distribution Width 18.2 % (11.5-14.5); Segmented Neutrophils % 90.6 %; White Blood Count 21.6 K/mcL (4.3-11.1)
[2021-02-23 02:31] LABS: BUN/Creatinine Ratio 42 (6-26); Blood Urea Nitrogen 25 mg/dL (8-23); Calcium 8.6 mg/dL (8.6-10.3); Carbon Dioxide 29 mEq/L (23-29); Chloride 95 mEq/L (98-107); Glucose 131 mg/dL (70-105); Magnesium 1.6 mg/dL (1.6-2.6); Osmolality,Calculated 284 (280-300); Potassium 3.7 mEq/L (3.5-5.1); Sodium 134 mEq/L (136-145); eGFR For African Americans > 60 (> 60); eGFR For Non-African Americans > 60 (> 60)
[2021-02-23 02:35] LABS: Platelet Count 63 K/mcL (140-400)
[2021-02-23 03:12] LABS: Anisocytosis 1+ (Not Present); Platelet Estimate Decreased (Normal)
[2021-02-23] MEDS: Ipratropium Neb 0.5 MG NEBULIZER IH SCH ×4 (04:19→14:53)
[2021-02-23] MEDS: Magic Mouthwash 10 ML UD Cup PO SCH ×3 (05:54→16:28)
[2021-02-23] MEDS: Budesonide/Formoterol 160/4.5 1 PUFF INH IH SCH ×2 (07:23→20:35)
[2021-02-23] MEDS: Nicotine 21 MG PATCH.TD24 TD SCH (09:48)
[2021-02-23] MEDS: Multivit/Ca/Min/Fe/FA 1 TAB TABLET PO SCH (09:48)
[2021-02-23] MEDS: Aspirin 81 MG TAB.CHEW PO SCH (09:49)
[2021-02-23] MEDS: Chlorhexidine Rinse 15 ML MOUTHWASH MM SCH ×2 (09:49→21:03)
[2021-02-23] MEDS: Furosemide 20 MG/2 ML VIAL IVP SCH ×2 (09:50→21:04)
[2021-02-23] MEDS: Lactobacillus 1 EACH CAP.SPRINK PO SCH ×2 (09:50→21:04)
[2021-02-23] MEDS: Morphine Sulfate 2 MG/ML SYRINGE IVP PRN (09:50)
[2021-02-23] MEDS: Folic Acid 1 MG TABLET PO SCH (09:50)
[2021-02-23] MEDS: polyethylene glycoL 3350 17 GM POWD.PACK PO SCH (09:50)
[2021-02-23] MEDS: *HR* LORazepam 0.5 MG TABLET PO SCH ×3 (09:50→21:04)
[2021-02-23] MEDS: FLUoxetine 20 MG CAPSULE PO SCH (09:50)
[2021-02-23] MEDS: Sennosides/Docusate Sodium TABLET PO SCH ×2 (09:51→21:04)
[2021-02-23] MEDS: *HR* OxyCODONE/APAP 7.5/325 TABLET PO PRN (14:38)
[2021-02-23] MEDS ORDERED: Ipratropium Neb 0.5 MG NEBULIZER IH PRN (15:54)
[2021-02-23] MEDS ORDERED: predniSONE 20 MG TABLET PO ONE (16:00)
[2021-02-23] MEDS: Ipratropium/Albuterol Neb 3 ML IH SCH ×2 (16:16→20:35)
[2021-02-24] MEDS: Ipratropium/Albuterol Neb 3 ML IH SCH ×4 (03:46→20:13)
[2021-02-24] MEDS: Magic Mouthwash 10 ML UD Cup PO SCH ×3 (05:35→15:31)
[2021-02-24] MEDS: *HR* OxyCODONE/APAP 7.5/325 TABLET PO PRN ×3 (05:39→18:38)
[2021-02-24 06:46] LABS: Basophils % 0.2 %; Hematocrit 32.8 % (35.3-44.9); Hemoglobin 10.8 g/dL (11.5-15.4); Mean Corpuscular HGB Conc 32.9 g/dL (31.6-35.5)
[2021-02-24 06:48] LABS: Immature Granulocytes % 1.2 % (0-4); Immature Platelets 6.2 % (1.1-6.1); Lymphocytes # 1.6 K/mcL (0.6-4.6); Lymphocytes % 8.9 %; Mean Corpuscular Volume 94.3 fL (83.0-100.0); Mean Platelet Volume 10.7 fL (9.4-12.4); Monocytes % 5.4 %; Neutrophils # 15.3 K/mcL (1.6-8.9); Red Blood Count 3.48 M/mcL (3.82-4.97); Red Cell Distribution Width 18.9 % (11.5-14.5); Segmented Neutrophils % 84.3 %; White Blood Count 18.1 K/mcL (4.3-11.1)
[2021-02-24 06:50] LABS: Platelet Count 93 K/mcL (140-400)
[2021-02-24 07:05] LABS: BUN/Creatinine Ratio 44 (6-26); Blood Urea Nitrogen 27 mg/dL (8-23); Carbon Dioxide 34 mEq/L (23-29); Chloride 93 mEq/L (98-107); Glucose 91 mg/dL (70-105); Magnesium 1.6 mg/dL (1.6-2.6); Osmolality,Calculated 283 (280-300); Potassium 3.7 mEq/L (3.5-5.1); Sodium 134 mEq/L (136-145); eGFR For African Americans > 60 (> 60); eGFR For Non-African Americans > 60 (> 60)
[2021-02-24] MEDS: FLUoxetine 20 MG CAPSULE PO SCH (09:29)
[2021-02-24] MEDS: Furosemide 20 MG/2 ML VIAL IVP SCH ×2 (09:29→20:05)
[2021-02-24] MEDS: Sennosides/Docusate Sodium TABLET PO SCH ×2 (09:30→20:05)
[2021-02-24] MEDS: predniSONE 20 MG TABLET PO SCH (09:30)
[2021-02-24] MEDS: Multivit/Ca/Min/Fe/FA 1 TAB TABLET PO SCH (09:30)
[2021-02-24] MEDS: *HR* LORazepam 0.5 MG TABLET PO SCH ×3 (09:31→20:03)
[2021-02-24] MEDS: Lactobacillus 1 EACH CAP.SPRINK PO SCH ×2 (09:31→20:04)
[2021-02-24] MEDS: Nicotine 21 MG PATCH.TD24 TD SCH (09:31)
[2021-02-24] MEDS: Folic Acid 1 MG TABLET PO SCH (09:31)
[2021-02-24] MEDS: polyethylene glycoL 3350 17 GM POWD.PACK PO SCH (09:32)
[2021-02-24] MEDS: Aspirin 81 MG TAB.CHEW PO SCH (09:32)
[2021-02-24] MEDS: Budesonide/Formoterol 160/4.5 1 PUFF INH IH SCH ×2 (09:49→20:14)
[2021-02-24] MEDS: Chlorhexidine Rinse 15 ML MOUTHWASH MM SCH ×2 (11:01→20:05)
[2021-02-24] MEDS: cefTRIAXone 1,000 MG in 0.9 % Sodium Chloride Mini Bag 100 ML IVPB SCH (22:22)
[2021-02-25 01:49] LABS: BUN/Creatinine Ratio 37 (6-26); Basophils % 0.2 %; Blood Urea Nitrogen 27 mg/dL (8-23); Calcium 8.9 mg/dL (8.6-10.3); Carbon Dioxide 33 mEq/L (23-29); Chloride 92 mEq/L (98-107); Glucose 104 mg/dL (70-105); Immature Granulocytes % 1.1 % (0-4); Lymphocytes # 1.9 K/mcL (0.6-4.6); Lymphocytes % 9.1 %; Mean Corpuscular HGB Conc 32.4 g/dL (31.6-35.5); Mean Corpuscular Hemoglobin 30.6 pg (28.0-33.3); Mean Corpuscular Volume 94.4 fL (83.0-100.0); Mean Platelet Volume 10.9 fL (9.4-12.4); Monocytes # 1.1 K/mcL (0.0-1.3); Monocytes % 5.3 %; Neutrophils # 17.9 K/mcL (1.6-8.9); Osmolality,Calculated 287 (280-300); Platelet Count 114 K/mcL (140-400); Potassium 3.2 mEq/L (3.5-5.1); Red Cell Distribution Width 18.6 % (11.5-14.5); Segmented Neutrophils % 84.3 %; Sodium 136 mEq/L (136-145); White Blood Count 21.2 K/mcL (4.3-11.1); eGFR For African Americans > 60 (> 60); eGFR For Non-African Americans > 60 (> 60)
[2021-02-25] MEDS: Ipratropium/Albuterol Neb 3 ML IH SCH ×4 (03:06→22:53)
[2021-02-25] MEDS: Magic Mouthwash 10 ML UD Cup PO SCH ×3 (08:19→15:16)
[2021-02-25] MEDS: Chlorhexidine Rinse 15 ML MOUTHWASH MM SCH ×2 (08:19→21:06)
[2021-02-25] MEDS: Nicotine 21 MG PATCH.TD24 TD SCH (08:20)
[2021-02-25] MEDS: predniSONE 20 MG TABLET PO SCH (08:20)
[2021-02-25] MEDS: Aspirin 81 MG TAB.CHEW PO SCH (08:20)
[2021-02-25] MEDS: Lactobacillus 1 EACH CAP.SPRINK PO SCH ×2 (08:21→21:06)
[2021-02-25] MEDS: *HR* LORazepam 0.5 MG TABLET PO SCH ×3 (08:21→21:06)
[2021-02-25] MEDS: FLUoxetine 20 MG CAPSULE PO SCH (08:21)
[2021-02-25] MEDS: Sennosides/Docusate Sodium TABLET PO SCH (08:21)
[2021-02-25] MEDS: Furosemide 20 MG/2 ML VIAL IVP SCH ×2 (08:21→21:07)
[2021-02-25] MEDS: Folic Acid 1 MG TABLET PO SCH (08:21)
[2021-02-25] MEDS: Multivit/Ca/Min/Fe/FA 1 TAB TABLET PO SCH (08:21)
[2021-02-25] MEDS: polyethylene glycoL 3350 17 GM POWD.PACK PO SCH (08:22)
[2021-02-25] MEDS: *HR* OxyCODONE/APAP 7.5/325 TABLET PO PRN ×2 (08:24→21:17)
[2021-02-25] MEDS: cefTRIAXone 2,000 MG in 0.9 % Sodium Chloride Mini Bag 100 ML IVPB SCH (11:13)
[2021-02-25] MEDS: Morphine Sulfate 2 MG/ML SYRINGE IVP PRN (11:14)
[2021-02-25] MEDS: Budesonide/Formoterol 160/4.5 1 PUFF INH IH SCH ×2 (11:52→22:53)
[2021-02-25] MEDS ORDERED: Isovue-370 500 ML BOTTLE IVP ONE (15:03)
[2021-02-26 02:06] LABS: Basophils % 0.2 %; Hematocrit 32.4 % (35.3-44.9); Hemoglobin 10.8 g/dL (11.5-15.4); Immature Granulocytes % 0.9 % (0-4); Lymphocytes % 9.1 %; Mean Corpuscular HGB Conc 33.3 g/dL (31.6-35.5); Mean Corpuscular Hemoglobin 31.4 pg (28.0-33.3); Mean Corpuscular Volume 94.2 fL (83.0-100.0); Mean Platelet Volume 10.7 fL (9.4-12.4); Monocytes # 1.3 K/mcL (0.0-1.3); Monocytes % 5.9 %; Neutrophils # 18.1 K/mcL (1.6-8.9); Platelet Count 136 K/mcL (140-400); Red Blood Count 3.44 M/mcL (3.82-4.97); Red Cell Distribution Width 19.3 % (11.5-14.5); Segmented Neutrophils % 83.9 %; White Blood Count 21.6 K/mcL (4.3-11.1)
[2021-02-26 02:23] LABS: Magnesium 1.6 mg/dL (1.6-2.6); Phosphorous 3.5 mg/dL (2.7-4.5)
[2021-02-26 02:24] LABS: BUN/Creatinine Ratio 35 (6-26); Blood Urea Nitrogen 25 mg/dL (8-23); Carbon Dioxide 32 mEq/L (23-29); Chloride 92 mEq/L (98-107); Glucose 94 mg/dL (70-105); Osmolality,Calculated 284 (280-300); Potassium 3.3 mEq/L (3.5-5.1); Sodium 135 mEq/L (136-145); eGFR For African Americans > 60 (> 60); eGFR For Non-African Americans > 60 (> 60)
[2021-02-26] MEDS: Ipratropium/Albuterol Neb 3 ML IH SCH ×4 (03:45→20:05)
[2021-02-26] MEDS: Chlorhexidine Rinse 15 ML MOUTHWASH MM SCH ×2 (09:02→20:55)
[2021-02-26] MEDS: Nicotine 21 MG PATCH.TD24 TD SCH (09:02)
[2021-02-26] MEDS: Magic Mouthwash 10 ML UD Cup PO SCH ×3 (09:02→15:16)
[2021-02-26] MEDS: Lactobacillus 1 EACH CAP.SPRINK PO SCH ×2 (09:03→20:55)
[2021-02-26] MEDS: Multivit/Ca/Min/Fe/FA 1 TAB TABLET PO SCH (09:03)
[2021-02-26] MEDS: Folic Acid 1 MG TABLET PO SCH (09:03)
[2021-02-26] MEDS: Furosemide 20 MG/2 ML VIAL IVP SCH ×2 (09:03→20:56)
[2021-02-26] MEDS: FLUoxetine 20 MG CAPSULE PO SCH (09:03)
[2021-02-26] MEDS: Aspirin 81 MG TAB.CHEW PO SCH (09:03)
[2021-02-26] MEDS: predniSONE 20 MG TABLET PO SCH (09:04)
[2021-02-26] MEDS: *HR* LORazepam 0.5 MG TABLET PO SCH ×3 (09:04→20:56)
[2021-02-26] MEDS: polyethylene glycoL 3350 17 GM POWD.PACK PO SCH (09:04)
[2021-02-26] MEDS: *HR* OxyCODONE/APAP 7.5/325 TABLET PO PRN ×2 (09:17→15:16)
[2021-02-26] MEDS: Budesonide/Formoterol 160/4.5 1 PUFF INH IH SCH ×2 (10:08→20:05)
[2021-02-26] MEDS: cefTRIAXone 2,000 MG in 0.9 % Sodium Chloride Mini Bag 100 ML IVPB SCH (12:02)
[2021-02-26] MEDS: Morphine Sulfate 2 MG/ML SYRINGE IVP PRN (12:08)
[2021-02-26 18:55] LABS: A.galactomannan Ag Index 0.04
[2021-02-27] MEDS: Ipratropium/Albuterol Neb 3 ML IH SCH ×4 (03:36→21:17)
[2021-02-27] MEDS: Multivit/Ca/Min/Fe/FA 1 TAB TABLET PO SCH (09:50)
[2021-02-27] MEDS: *HR* LORazepam 0.5 MG TABLET PO SCH ×3 (09:50→19:42)
[2021-02-27] MEDS: Lactobacillus 1 EACH CAP.SPRINK PO SCH ×2 (09:50→19:41)
[2021-02-27] MEDS: predniSONE 20 MG TABLET PO SCH (09:50)
[2021-02-27] MEDS: FLUoxetine 20 MG CAPSULE PO SCH (09:50)
[2021-02-27] MEDS: Aspirin 81 MG TAB.CHEW PO SCH (09:50)
[2021-02-27] MEDS: polyethylene glycoL 3350 17 GM POWD.PACK PO SCH (09:51)
[2021-02-27] MEDS: Chlorhexidine Rinse 15 ML MOUTHWASH MM SCH ×2 (09:51→19:41)
[2021-02-27] MEDS: Magic Mouthwash 10 ML UD Cup PO SCH ×3 (09:51→18:19)
[2021-02-27] MEDS: Nicotine 21 MG PATCH.TD24 TD SCH (09:51)
[2021-02-27] MEDS: Folic Acid 1 MG TABLET PO SCH (09:51)
[2021-02-27] MEDS: *HR* OxyCODONE/APAP 7.5/325 TABLET PO PRN ×2 (10:03→18:21)
[2021-02-27 10:16] LABS: Basophils # 0.1 K/mcL (0.0-0.2); Basophils % 0.3 %; Eosinophils % 0.1 %; Hematocrit 32.8 % (35.3-44.9); Hemoglobin 10.7 g/dL (11.5-15.4); Immature Granulocytes % 1.1 % (0-4); Lymphocytes # 1.3 K/mcL (0.6-4.6); Lymphocytes % 7.2 %; Mean Corpuscular HGB Conc 32.6 g/dL (31.6-35.5); Mean Corpuscular Hemoglobin 30.9 pg (28.0-33.3); Mean Corpuscular Volume 94.8 fL (83.0-100.0); Mean Platelet Volume 10.3 fL (9.4-12.4); Monocytes # 1.4 K/mcL (0.0-1.3); Monocytes % 7.7 %; Neutrophils # 15.3 K/mcL (1.6-8.9); Platelet Count 177 K/mcL (140-400); Red Blood Count 3.46 M/mcL (3.82-4.97); Red Cell Distribution Width 19.8 % (11.5-14.5); Segmented Neutrophils % 83.6 %; White Blood Count 18.3 K/mcL (4.3-11.1)
[2021-02-27 10:33] LABS: Basophils # 0.1 K/mcL (0.0-0.2); Basophils % 0.3 %; Eosinophils % 0.1 %; Hematocrit 31.8 % (35.3-44.9); Hemoglobin 10.6 g/dL (11.5-15.4); Immature Granulocytes % 1.2 % (0-4); Lymphocytes # 1.3 K/mcL (0.6-4.6); Lymphocytes % 6.8 %; Mean Corpuscular HGB Conc 33.3 g/dL (31.6-35.5); Mean Corpuscular Hemoglobin 31.6 pg (28.0-33.3); Mean Corpuscular Volume 94.9 fL (83.0-100.0); Monocytes # 1.3 K/mcL (0.0-1.3); Monocytes % 6.6 %; Neutrophils # 16.1 K/mcL (1.6-8.9); Platelet Count 166 K/mcL (140-400); Red Blood Count 3.35 M/mcL (3.82-4.97); Red Cell Distribution Width 19.8 % (11.5-14.5); White Blood Count 18.9 K/mcL (4.3-11.1)
[2021-02-27 10:37] LABS: BUN/Creatinine Ratio 41 (6-26); Blood Urea Nitrogen 23 mg/dL (8-23); Calcium 9.2 mg/dL (8.6-10.3); Carbon Dioxide 32 mEq/L (23-29); Chloride 95 mEq/L (98-107); Glucose 105 mg/dL (70-105); Osmolality,Calculated 286 (280-300); Potassium 3.7 mEq/L (3.5-5.1); Sodium 136 mEq/L (136-145); eGFR For African Americans > 60 (> 60); eGFR For Non-African Americans > 60 (> 60)
[2021-02-27] MEDS: Budesonide/Formoterol 160/4.5 1 PUFF INH IH SCH ×2 (10:37→21:17)
[2021-02-27 10:38] LABS: Magnesium 1.6 mg/dL (1.6-2.6); Phosphorous 2.9 mg/dL (2.7-4.5)
[2021-02-27 10:51] LABS: BUN/Creatinine Ratio 41 (6-26); Blood Urea Nitrogen 24 mg/dL (8-23); Calcium 8.7 mg/dL (8.6-10.3); Carbon Dioxide 32 mEq/L (23-29); Chloride 95 mEq/L (98-107); Glucose 133 mg/dL (70-105); Magnesium 1.6 mg/dL (1.6-2.6); Osmolality,Calculated 286 (280-300); Potassium 3.7 mEq/L (3.5-5.1); Sodium 135 mEq/L (136-145); eGFR For African Americans > 60 (> 60); eGFR For Non-African Americans > 60 (> 60)
[2021-02-27] MEDS: cefTRIAXone 2,000 MG in 0.9 % Sodium Chloride Mini Bag 100 ML IVPB SCH (11:57)
[2021-02-27 15:23] LABS: Bacteria,Urine Few per hpf (None-Few); Bilirubin,Urine Negative (Negative); Blood,Urine Negative (Negative); Clarity,Urine Clear (Clear); Color,Urine Yellow (Yellow); Glucose,Urine (UA) Normal (Normal); Hyaline Casts,Urine Few per lpf (None Seen); Ketones,Urine Negative (Negative); Leukocyte Esterase,Urine Negative (Negative); Mucus,Urine Few per lpf (None-Few); Nitrite,Urine Negative (Negative); Protein,Urine 50 mg/dL (Neg-Trace); Specific Gravity,Urine > 1.030 (1.010-1.025); Squamous Epithelial Cell,Urine Moderate per hpf (None-Few); Urobilinogen,Urine Normal (Normal)
[2021-02-27] MEDS: MethylPREDNISolone 40 MG/ML VIAL IVP SCH (18:18)
[2021-02-28 01:08] LABS: Basophils % 0.2 %; Hematocrit 30.5 % (35.3-44.9); Hemoglobin 10.2 g/dL (11.5-15.4); Immature Granulocytes % 1.6 % (0-4); Lymphocytes # 0.9 K/mcL (0.6-4.6); Lymphocytes % 4.9 %; Mean Corpuscular HGB Conc 33.4 g/dL (31.6-35.5); Mean Corpuscular Hemoglobin 31.9 pg (28.0-33.3); Mean Corpuscular Volume 95.3 fL (83.0-100.0); Mean Platelet Volume 10.2 fL (9.4-12.4); Monocytes # 0.8 K/mcL (0.0-1.3); Monocytes % 4.1 %; Neutrophils # 16.5 K/mcL (1.6-8.9); Platelet Count 188 K/mcL (140-400); Red Cell Distribution Width 19.2 % (11.5-14.5); Segmented Neutrophils % 89.2 %; White Blood Count 18.5 K/mcL (4.3-11.1)
[2021-02-28] MEDS: *HR* OxyCODONE/APAP 7.5/325 TABLET PO PRN ×4 (01:28→20:38)
[2021-02-28 01:31] LABS: BUN/Creatinine Ratio 35 (6-26); Blood Urea Nitrogen 23 mg/dL (8-23); Carbon Dioxide 30 mEq/L (23-29); Chloride 95 mEq/L (98-107); Glucose 129 mg/dL (70-105); Osmolality,Calculated 283 (280-300); Sodium 134 mEq/L (136-145); eGFR For African Americans > 60 (> 60); eGFR For Non-African Americans > 60 (> 60)
[2021-02-28] MEDS: Ipratropium/Albuterol Neb 3 ML IH SCH ×4 (03:36→20:48)
[2021-02-28] MEDS: MethylPREDNISolone 40 MG/ML VIAL IVP SCH ×2 (05:31→18:42)
[2021-02-28] MEDS: polyethylene glycoL 3350 17 GM POWD.PACK PO SCH (08:10)
[2021-02-28] MEDS: Lactobacillus 1 EACH CAP.SPRINK PO SCH ×2 (08:10→20:38)
[2021-02-28] MEDS: FLUoxetine 20 MG CAPSULE PO SCH (08:10)
[2021-02-28] MEDS: Nicotine 21 MG PATCH.TD24 TD SCH (08:10)
[2021-02-28] MEDS: Folic Acid 1 MG TABLET PO SCH (08:10)
[2021-02-28] MEDS: Magic Mouthwash 10 ML UD Cup PO SCH ×3 (08:11→18:51)
[2021-02-28] MEDS: Multivit/Ca/Min/Fe/FA 1 TAB TABLET PO SCH (08:11)
[2021-02-28] MEDS: Aspirin 81 MG TAB.CHEW PO SCH (08:11)
[2021-02-28] MEDS: Chlorhexidine Rinse 15 ML MOUTHWASH MM SCH ×2 (08:11→20:38)
[2021-02-28] MEDS: *HR* LORazepam 0.5 MG TABLET PO SCH ×3 (08:11→20:38)
[2021-02-28] MEDS ORDERED: Furosemide 20 MG/2 ML VIAL IVP ONE (08:17)
[2021-02-28] MEDS: Budesonide/Formoterol 160/4.5 1 PUFF INH IH SCH ×2 (09:47→20:48)
[2021-02-28] MEDS: Morphine Sulfate 2 MG/ML SYRINGE IVP PRN (13:08)
[2021-02-28] MEDS: Doxycycline 100 MG in 0.9 % Sodium Chloride Mini Bag 100 ML IVPB SCH (13:09)
[2021-02-28] MEDS: cefTRIAXone 2,000 MG in 0.9 % Sodium Chloride Mini Bag 100 ML IVPB SCH (13:10)
[2021-03-01] MEDS: Doxycycline 100 MG in 0.9 % Sodium Chloride Mini Bag 100 ML IVPB SCH ×3 (00:03→23:53)
[2021-03-01 01:44] LABS: Basophils # 0.1 K/mcL (0.0-0.2); Basophils % 0.4 %; Eosinophils % 0.1 %; Hematocrit 31.1 % (35.3-44.9); Immature Granulocytes % 2.5 % (0-4); Lymphocytes # 0.8 K/mcL (0.6-4.6); Lymphocytes % 4.7 %; Mean Corpuscular HGB Conc 32.2 g/dL (31.6-35.5); Mean Corpuscular Hemoglobin 31.1 pg (28.0-33.3); Mean Corpuscular Volume 96.6 fL (83.0-100.0); Mean Platelet Volume 10.1 fL (9.4-12.4); Monocytes # 0.7 K/mcL (0.0-1.3); Monocytes % 4.3 %; Platelet Count 225 K/mcL (140-400); Red Blood Count 3.22 M/mcL (3.82-4.97); Red Cell Distribution Width 19.9 % (11.5-14.5); White Blood Count 17.1 K/mcL (4.3-11.1)
[2021-03-01 01:55] LABS: BUN/Creatinine Ratio 27 (6-26); Blood Urea Nitrogen 24 mg/dL (8-23); Calcium 8.8 mg/dL (8.6-10.3); Carbon Dioxide 32 mEq/L (23-29); Chloride 95 mEq/L (98-107); Glucose 127 mg/dL (70-105); Osmolality,Calculated 288 (280-300); Potassium 4.1 mEq/L (3.5-5.1); Sodium 136 mEq/L (136-145); eGFR For African Americans > 60 (> 60); eGFR For Non-African Americans > 60 (> 60)
[2021-03-01] MEDS: Ipratropium/Albuterol Neb 3 ML IH SCH ×4 (03:41→20:02)
[2021-03-01] MEDS: *HR* Enoxaparin 40 MG/0.4 ML SYRINGE SQ SCH (04:27)
[2021-03-01] MEDS: *HR* OxyCODONE/APAP 7.5/325 TABLET PO PRN ×3 (04:27→20:30)
[2021-03-01] MEDS: MethylPREDNISolone 40 MG/ML VIAL IVP SCH (04:28)
[2021-03-01 08:14] LABS: ABG Base Excess 9 mEq/L (-2 to 3); ABG HCO3 34 mEq/L (21-27); ABG Oxygen Saturation 95 % (95-98); ABG PCO2 51 mmHg (35-45); ABG PH 7.43 pH Units (7.32-7.45); ABG PO2 77 mmHg (85-104); ABG TCO2 36 mEq/L (20-26)
[2021-03-01] MEDS: Multivit/Ca/Min/Fe/FA 1 TAB TABLET PO SCH (08:30)
[2021-03-01] MEDS: Lactobacillus 1 EACH CAP.SPRINK PO SCH ×2 (08:30→20:30)
[2021-03-01] MEDS: Folic Acid 1 MG TABLET PO SCH (08:30)
[2021-03-01] MEDS: *HR* LORazepam 0.5 MG TABLET PO SCH ×3 (08:30→20:30)
[2021-03-01] MEDS: FLUoxetine 20 MG CAPSULE PO SCH (08:30)
[2021-03-01] MEDS: Aspirin 81 MG TAB.CHEW PO SCH (08:30)
[2021-03-01] MEDS: Nicotine 21 MG PATCH.TD24 TD SCH (08:31)
[2021-03-01] MEDS: Magic Mouthwash 10 ML UD Cup PO SCH ×3 (08:32→15:56)
[2021-03-01] MEDS: polyethylene glycoL 3350 17 GM POWD.PACK PO SCH (08:33)
[2021-03-01] MEDS: Chlorhexidine Rinse 15 ML MOUTHWASH MM SCH ×2 (08:33→20:29)
[2021-03-01] MEDS: Budesonide/Formoterol 160/4.5 1 PUFF INH IH SCH ×2 (09:57→20:02)
[2021-03-01] MEDS: cefTRIAXone 2,000 MG in 0.9 % Sodium Chloride Mini Bag 100 ML IVPB SCH (12:43)
[2021-03-01] MEDS ORDERED: Saline Nasal Spray 44 ML BOTTLE NS PRN (14:37)
[2021-03-01] MEDS: Melatonin 3 MG TABLET PO PRN (20:30)
[2021-03-02 02:37] LABS: Basophils # 0.1 K/mcL (0.0-0.2); Basophils % 0.6 %; Eosinophils % 0.3 %; Hematocrit 30.7 % (35.3-44.9); Hemoglobin 10.1 g/dL (11.5-15.4); Immature Granulocytes % 4.3 % (0-4); Lymphocytes # 2.4 K/mcL (0.6-4.6); Lymphocytes % 15.2 %; Mean Corpuscular HGB Conc 32.9 g/dL (31.6-35.5); Mean Corpuscular Hemoglobin 31.9 pg (28.0-33.3); Mean Corpuscular Volume 96.8 fL (83.0-100.0); Mean Platelet Volume 9.7 fL (9.4-12.4); Monocytes # 1.4 K/mcL (0.0-1.3); Neutrophils # 11.1 K/mcL (1.6-8.9); Platelet Count 258 K/mcL (140-400); Red Blood Count 3.17 M/mcL (3.82-4.97); Red Cell Distribution Width 20.2 % (11.5-14.5); Segmented Neutrophils % 70.6 %; White Blood Count 15.7 K/mcL (4.3-11.1)
[2021-03-02 02:54] LABS: BUN/Creatinine Ratio 36 (6-26); Blood Urea Nitrogen 25 mg/dL (8-23); Calcium 8.8 mg/dL (8.6-10.3); Carbon Dioxide 31 mEq/L (23-29); Chloride 97 mEq/L (98-107); Glucose 106 mg/dL (70-105); Osmolality,Calculated 285 (280-300); Potassium 3.6 mEq/L (3.5-5.1); Sodium 135 mEq/L (136-145); eGFR For African Americans > 60 (> 60); eGFR For Non-African Americans > 60 (> 60)
[2021-03-02] MEDS: Ipratropium/Albuterol Neb 3 ML IH SCH ×4 (03:49→21:34)
[2021-03-02] MEDS: *HR* Enoxaparin 40 MG/0.4 ML SYRINGE SQ SCH (05:33)
[2021-03-02] MEDS: Lactobacillus 1 EACH CAP.SPRINK PO SCH ×2 (08:12→20:00)
[2021-03-02] MEDS: Folic Acid 1 MG TABLET PO SCH (08:12)
[2021-03-02] MEDS: FLUoxetine 20 MG CAPSULE PO SCH (08:12)
[2021-03-02] MEDS: Nicotine 21 MG PATCH.TD24 TD SCH (08:12)
[2021-03-02] MEDS: Multivit/Ca/Min/Fe/FA 1 TAB TABLET PO SCH (08:12)
[2021-03-02] MEDS: Aspirin 81 MG TAB.CHEW PO SCH (08:12)
[2021-03-02] MEDS: *HR* LORazepam 0.5 MG TABLET PO SCH ×3 (08:13→20:00)
[2021-03-02] MEDS: polyethylene glycoL 3350 17 GM POWD.PACK PO SCH (08:13)
[2021-03-02] MEDS: Magic Mouthwash 10 ML UD Cup PO SCH ×3 (08:13→16:24)
[2021-03-02] MEDS: Chlorhexidine Rinse 15 ML MOUTHWASH MM SCH ×2 (08:13→20:00)
[2021-03-02] MEDS ORDERED: MethylPREDNISolone 40 MG/ML VIAL IVP SCH (09:00)
[2021-03-02] MEDS: Budesonide/Formoterol 160/4.5 1 PUFF INH IH SCH ×2 (10:07→21:34)
[2021-03-02] MEDS: *HR* OxyCODONE/APAP 7.5/325 TABLET PO PRN ×2 (12:21→20:00)
[2021-03-02] MEDS: Doxycycline 100 MG in 0.9 % Sodium Chloride Mini Bag 100 ML IVPB SCH ×2 (13:43→23:04)
[2021-03-02] MEDS: GuaiFENesin/Dextromethorphan TABLET PO SCH ×2 (13:43→20:01)
[2021-03-02] MEDS: Morphine Sulfate 2 MG/ML SYRINGE IVP PRN ×2 (13:49→21:58)
[2021-03-02] MEDS: MethylPREDNISolone 40 MG/ML VIAL IVP SCH (21:56)
[2021-03-02] MEDS: cefTRIAXone 1,000 MG in Water for inj. (sterile) 10 ML IVP SCH (21:57)
[2021-03-03 01:49] LABS: Basophils # 0.1 K/mcL (0.0-0.2); Basophils % 0.5 %; Hematocrit 31.6 % (35.3-44.9); Hemoglobin 10.2 g/dL (11.5-15.4); Immature Granulocytes % 4.1 % (0-4); Lymphocytes # 0.8 K/mcL (0.6-4.6); Lymphocytes % 4.2 %; Mean Corpuscular HGB Conc 32.3 g/dL (31.6-35.5); Mean Corpuscular Hemoglobin 31.5 pg (28.0-33.3); Mean Corpuscular Volume 97.5 fL (83.0-100.0); Mean Platelet Volume 9.8 fL (9.4-12.4); Monocytes # 0.8 K/mcL (0.0-1.3); Monocytes % 3.9 %; Platelet Count 298 K/mcL (140-400); Red Blood Count 3.24 M/mcL (3.82-4.97); Red Cell Distribution Width 20.5 % (11.5-14.5); Segmented Neutrophils % 87.3 %; White Blood Count 19.5 K/mcL (4.3-11.1)
[2021-03-03 02:09] LABS: BUN/Creatinine Ratio 39 (6-26); Blood Urea Nitrogen 26 mg/dL (8-23); Carbon Dioxide 29 mEq/L (23-29); Chloride 98 mEq/L (98-107); Glucose 131 mg/dL (70-105); Osmolality,Calculated 289 (280-300); Potassium 3.7 mEq/L (3.5-5.1); Sodium 136 mEq/L (136-145); eGFR For African Americans > 60 (> 60); eGFR For Non-African Americans > 60 (> 60)
[2021-03-03] MEDS: Ipratropium/Albuterol Neb 3 ML IH SCH ×4 (04:05→20:10)
[2021-03-03] MEDS: MethylPREDNISolone 40 MG/ML VIAL IVP SCH ×3 (05:14→21:04)
[2021-03-03] MEDS: *HR* Enoxaparin 40 MG/0.4 ML SYRINGE SQ SCH (05:14)
[2021-03-03] MEDS: Magic Mouthwash 10 ML UD Cup PO SCH ×3 (08:02→15:04)
[2021-03-03] MEDS: GuaiFENesin/Dextromethorphan TABLET PO SCH ×2 (08:20→21:07)
[2021-03-03] MEDS: Multivit/Ca/Min/Fe/FA 1 TAB TABLET PO SCH (08:20)
[2021-03-03] MEDS: polyethylene glycoL 3350 17 GM POWD.PACK PO SCH (08:20)
[2021-03-03] MEDS: Nicotine 21 MG PATCH.TD24 TD SCH (08:20)
[2021-03-03] MEDS: Aspirin 81 MG TAB.CHEW PO SCH (08:20)
[2021-03-03] MEDS: Chlorhexidine Rinse 15 ML MOUTHWASH MM SCH ×2 (08:21→21:02)
[2021-03-03] MEDS: Lactobacillus 1 EACH CAP.SPRINK PO SCH ×2 (08:21→21:05)
[2021-03-03] MEDS: *HR* LORazepam 0.5 MG TABLET PO SCH ×3 (08:21→21:06)
[2021-03-03] MEDS: FLUoxetine 20 MG CAPSULE PO SCH (08:21)
[2021-03-03] MEDS: Folic Acid 1 MG TABLET PO SCH (08:21)
[2021-03-03] MEDS: *HR* OxyCODONE/APAP 7.5/325 TABLET PO PRN ×2 (09:31→21:05)
[2021-03-03] MEDS: Doxycycline 100 MG in 0.9 % Sodium Chloride Mini Bag 100 ML IVPB SCH (11:48)
[2021-03-03] MEDS: Budesonide/Formoterol 160/4.5 1 PUFF INH IH SCH ×2 (11:51→20:10)
[2021-03-03] MEDS: Morphine Sulfate 2 MG/ML SYRINGE IVP PRN (13:38)
[2021-03-03] MEDS: cefTRIAXone 1,000 MG in Water for inj. (sterile) 10 ML IVP SCH (21:02)
[2021-03-04] MEDS: Ipratropium/Albuterol Neb 3 ML IH SCH ×4 (03:15→20:07)
[2021-03-04 04:20] LABS: Blood Urea Nitrogen 27 mg/dL (8-23); Calcium 8.9 mg/dL (8.6-10.3); Carbon Dioxide 29 mEq/L (23-29); Chloride 98 mEq/L (98-107); Glucose 132 mg/dL (70-105); Osmolality,Calculated 285 (280-300); Sodium 134 mEq/L (136-145)
[2021-03-04 05:22] LABS: BUN/Creatinine Ratio 44 (6-26); eGFR For African Americans > 60 (> 60); eGFR For Non-African Americans > 60 (> 60)
[2021-03-04] MEDS: MethylPREDNISolone 40 MG/ML VIAL IVP SCH ×3 (05:24→20:56)
[2021-03-04] MEDS: *HR* Enoxaparin 40 MG/0.4 ML SYRINGE SQ SCH (05:24)
[2021-03-04 05:28] LABS: Hematocrit 30.6 % (35.3-44.9); Hemoglobin 9.7 g/dL (11.5-15.4); Immature Granulocytes % 5.1 % (0-4); Mean Corpuscular HGB Conc 31.7 g/dL (31.6-35.5); Mean Corpuscular Hemoglobin 31.5 pg (28.0-33.3); Mean Corpuscular Volume 99.4 fL (83.0-100.0); Mean Platelet Volume 9.9 fL (9.4-12.4); Neutrophils # 18.4 K/mcL (1.6-8.9); Platelet Count 337 K/mcL (140-400); Red Blood Count 3.08 M/mcL (3.82-4.97); Red Cell Distribution Width 20.8 % (11.5-14.5); Segmented Neutrophils % 81.6 %; White Blood Count 22.5 K/mcL (4.3-11.1)
[2021-03-04 05:29] LABS: Basophils # 0.2 K/mcL (0.0-0.2); Basophils % 0.7 %; Lymphocytes # 1.3 K/mcL (0.6-4.6); Lymphocytes % 5.8 %; Monocytes # 1.5 K/mcL (0.0-1.3); Monocytes % 6.8 %
[2021-03-04 05:49] LABS: Anisocytosis 2+ (Not Present); Platelet Estimate Normal (Normal)
[2021-03-04] MEDS: polyethylene glycoL 3350 17 GM POWD.PACK PO SCH (07:49)
[2021-03-04] MEDS: Magic Mouthwash 10 ML UD Cup PO SCH ×3 (07:58→16:49)
[2021-03-04] MEDS: Nicotine 21 MG PATCH.TD24 TD SCH (07:58)
[2021-03-04] MEDS: *HR* LORazepam 0.5 MG TABLET PO SCH (07:59)
[2021-03-04] MEDS: Chlorhexidine Rinse 15 ML MOUTHWASH MM SCH ×2 (07:59→20:57)
[2021-03-04] MEDS: Lactobacillus 1 EACH CAP.SPRINK PO SCH ×2 (07:59→20:57)
[2021-03-04] MEDS: GuaiFENesin/Dextromethorphan TABLET PO SCH ×2 (07:59→20:57)
[2021-03-04] MEDS: Folic Acid 1 MG TABLET PO SCH (07:59)
[2021-03-04] MEDS: Multivit/Ca/Min/Fe/FA 1 TAB TABLET PO SCH (07:59)
[2021-03-04] MEDS: Aspirin 81 MG TAB.CHEW PO SCH (07:59)
[2021-03-04] MEDS ORDERED: Morphine Sulfate 2 MG/ML SYRINGE IVP ONE (08:48)
[2021-03-04] MEDS: Budesonide/Formoterol 160/4.5 1 PUFF INH IH SCH ×2 (10:21→20:08)
[2021-03-04] MEDS ORDERED: *HR* LORazepam 2 MG/ML VIAL IVP PRN (10:38)
[2021-03-04] MEDS: Morphine Sulfate 2 MG/ML SYRINGE IVP PRN ×4 (11:03→22:45)
[2021-03-04] MEDS ORDERED: Morphine Sulfate Oral CONC 10 MG/0.5 ML ORAL.SYG SL PRN (14:02)
[2021-03-04] MEDS: Morphine Sulfate Oral CONC 10 MG/0.5 ML ORAL.SYG SL PRN (16:49)
[2021-03-04] MEDS ORDERED: Benzonatate 100 MG CAPSULE PO PRN (16:57)
[2021-03-04] MEDS: *HR* LORazepam Oral Conc 2 MG/ML SL PRN (22:43)
[2021-03-05 02:42] LABS: Hematocrit 30.4 % (35.3-44.9); Mean Corpuscular HGB Conc 32.9 g/dL (31.6-35.5); Mean Corpuscular Hemoglobin 32.6 pg (28.0-33.3); Mean Platelet Volume 9.7 fL (9.4-12.4); Platelet Count 340 K/mcL (140-400); Red Blood Count 3.07 M/mcL (3.82-4.97); Red Cell Distribution Width 21.2 % (11.5-14.5); White Blood Count 19.7 K/mcL (4.3-11.1)
[2021-03-05] MEDS: Morphine Sulfate 2 MG/ML SYRINGE IVP PRN ×5 (02:55→23:52)
[2021-03-05 03:00] LABS: BUN/Creatinine Ratio 35 (6-26); Blood Urea Nitrogen 23 mg/dL (8-23); Calcium 8.8 mg/dL (8.6-10.3); Carbon Dioxide 30 mEq/L (23-29); Chloride 99 mEq/L (98-107); Glucose 129 mg/dL (70-105); Osmolality,Calculated 289 (280-300); Potassium 4.4 mEq/L (3.5-5.1); Sodium 137 mEq/L (136-145); eGFR For African Americans > 60 (> 60); eGFR For Non-African Americans > 60 (> 60)
[2021-03-05 03:37] LABS: Lymphocytes # 1.6 K/mcL (0.6-4.6); Monocytes # 0.2 K/mcL (0.0-1.3); Neutrophils # 17.9 K/mcL (1.6-8.9); Platelet Estimate Normal (Normal); Reactive Lymphocytes Present (Not Present); Toxic Granulation Present (Not Present)
[2021-03-05 03:38] LABS: Anisocytosis 2+ (Not Present)
[2021-03-05] MEDS: Ipratropium/Albuterol Neb 3 ML IH SCH ×4 (04:06→22:03)
[2021-03-05] MEDS: *HR* Enoxaparin 40 MG/0.4 ML SYRINGE SQ SCH (05:29)
[2021-03-05] MEDS: MethylPREDNISolone 40 MG/ML VIAL IVP SCH ×3 (05:30→20:05)
[2021-03-05] MEDS: Budesonide/Formoterol 160/4.5 1 PUFF INH IH SCH ×2 (07:57→22:03)
[2021-03-05] MEDS: Magic Mouthwash 10 ML UD Cup PO SCH ×3 (08:01→15:41)
[2021-03-05] MEDS: Folic Acid 1 MG TABLET PO SCH (08:01)
[2021-03-05] MEDS: Aspirin 81 MG TAB.CHEW PO SCH (08:01)
[2021-03-05] MEDS: Multivit/Ca/Min/Fe/FA 1 TAB TABLET PO SCH (08:01)
[2021-03-05] MEDS: Lactobacillus 1 EACH CAP.SPRINK PO SCH ×2 (08:01→20:06)
[2021-03-05] MEDS: GuaiFENesin/Dextromethorphan TABLET PO SCH ×2 (08:01→20:06)
[2021-03-05] MEDS: Chlorhexidine Rinse 15 ML MOUTHWASH MM SCH ×2 (08:01→20:06)
[2021-03-05] MEDS: Nicotine 21 MG PATCH.TD24 TD SCH (08:02)
[2021-03-05] MEDS: polyethylene glycoL 3350 17 GM POWD.PACK PO SCH (08:03)
[2021-03-05] MEDS: Morphine Sulfate Oral CONC 10 MG/0.5 ML ORAL.SYG SL PRN ×2 (15:42→22:13)
[2021-03-05] MEDS: *HR* LORazepam Oral Conc 2 MG/ML SL PRN (22:59)
[2021-03-06 02:05] LABS: Basophils # 0.2 K/mcL (0.0-0.2); Basophils % 0.7 %; Hematocrit 32.4 % (35.3-44.9); Hemoglobin 10.4 g/dL (11.5-15.4); Lymphocytes % 4.9 %; Mean Corpuscular HGB Conc 32.1 g/dL (31.6-35.5); Mean Corpuscular Hemoglobin 31.5 pg (28.0-33.3); Mean Corpuscular Volume 98.2 fL (83.0-100.0); Mean Platelet Volume 9.4 fL (9.4-12.4); Monocytes # 1.4 K/mcL (0.0-1.3); Monocytes % 6.5 %; Neutrophils # 17.4 K/mcL (1.6-8.9); Nucleated Red Blood Cells 0.1 /100 WBC (0); Platelet Count 347 K/mcL (140-400); Red Cell Distribution Width 21.3 % (11.5-14.5); Segmented Neutrophils % 82.9 %
[2021-03-06 02:27] LABS: BUN/Creatinine Ratio 39 (6-26); Blood Urea Nitrogen 23 mg/dL (8-23); Carbon Dioxide 30 mEq/L (23-29); Chloride 99 mEq/L (98-107); Glucose 125 mg/dL (70-105); Osmolality,Calculated 289 (280-300); Potassium 4.5 mEq/L (3.5-5.1); Sodium 137 mEq/L (136-145); eGFR For African Americans > 60 (> 60); eGFR For Non-African Americans > 60 (> 60)
[2021-03-06] MEDS: Ipratropium/Albuterol Neb 3 ML IH SCH ×3 (03:49→15:23)
[2021-03-06] MEDS: MethylPREDNISolone 40 MG/ML VIAL IVP SCH ×2 (04:27→12:00)
[2021-03-06] MEDS: *HR* Enoxaparin 40 MG/0.4 ML SYRINGE SQ SCH (04:28)
[2021-03-06] MEDS: Morphine Sulfate 2 MG/ML SYRINGE IVP PRN ×4 (04:30→16:04)
[2021-03-06] MEDS: Lactobacillus 1 EACH CAP.SPRINK PO SCH (07:39)
[2021-03-06] MEDS: Folic Acid 1 MG TABLET PO SCH (07:39)
[2021-03-06] MEDS: Multivit/Ca/Min/Fe/FA 1 TAB TABLET PO SCH (07:39)
[2021-03-06] MEDS: Aspirin 81 MG TAB.CHEW PO SCH (07:39)
[2021-03-06] MEDS: GuaiFENesin/Dextromethorphan TABLET PO SCH (07:40)
[2021-03-06] MEDS: polyethylene glycoL 3350 17 GM POWD.PACK PO SCH (07:40)
[2021-03-06] MEDS: Chlorhexidine Rinse 15 ML MOUTHWASH MM SCH (07:40)
[2021-03-06] MEDS: Nicotine 21 MG PATCH.TD24 TD SCH (07:40)
[2021-03-06] MEDS: Magic Mouthwash 10 ML UD Cup PO SCH ×2 (07:40→12:00)
[2021-03-06] MEDS: Budesonide/Formoterol 160/4.5 1 PUFF INH IH SCH (09:22)
[2021-03-06 11:15] VITALS: BP 114/76; PULSE 90; TEMP 97.9
[2021-03-06] MEDS: *HR* LORazepam Oral Conc 2 MG/ML SL PRN ×2 (12:00→16:04)
[2021-03-06 17:27] VITALS: O2SAT 93
== END 2021-03-06 16:38 | disposition hospice, home (50) | DRG 871 ==
LOC: 2ANU → SUATTDRO 06:57
PROVIDERS: ADMIT Internal Medicine; ATTEND Student in an Organized Health Care Education/Training Program